=== PATIENT | female | born 1960 | race African-American/Black ===

== ENCOUNTER 2019-08-18 12:07 | Observation (INO) | payer OTHER ==
[2019-08-18 12:39] LABS: Hemoglobin 13.7 g/dL (12.0-16.0); Mean Corpuscular HGB CONC 31.7 g/dL (32.0-36.0); Mean Corpuscular Volume 88.4 fL (78.0-98.0); Mean Platelet Volume 7.6 fL (7.4-10.4); Platelet Count 265 thou/uL (130-400); RBC Distribution Width 11.9 % (11.5-14.5); Red Blood Cell (RBC) Count 4.89 mill/uL (4.20-5.40)
[2019-08-18 12:55] LABS: Band 7 % (5-11); Lymphocytes 14 % (21-51); MDiff Complete? YES; Metamyelocyte 1 % (0-0); Monocytes 2 % (0-10); Neutrophil 76 % (42-75); Platelet Morphology Comment Appears Adequate; RBC Morphology Normal; Vacuoles SLIGHT
[2019-08-18 13:01] LABS: ALT (SGPT) 35 U/L (8-55); AST (SGOT) 49 U/L (5-34); Albumin 4.4 g/dL (3.5-5.0); Alkaline Phosphatase 73 U/L (40-110); Anion Gap 11 mmol/L (10-20); BUN (Urea Nitrogen) 14 mg/dL (9.8-20.1); Bilirubin, Total 0.6 mg/dL (0.2-1.2); Calc. Creatinine Clearance 0 mL/min (70-130); Calcium 9.5 mg/dL (7.8-10.44); Carbon Dioxide 30 mmol/L (22-29); Chloride 101 mmol/L (98-107); Estimated GFR-MDRD 56; Globulin 3.7 g/dL (2.4-3.5); Glucose 132 mg/dL (70-105); Potassium 3.3 mmol/L (3.5-5.1); Protein, Total 8.1 g/dL (6.0-8.3); Sodium 139 mmol/L (136-145)
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
--- NOTE | 2019-08-18 13:26 | CT ---
CT BRAIN WITHOUT CONTRAST: HISTORY: Syncope FINDINGS: No evidence of acute infarct, hemorrhage, midline shift or abnormal extra-axial fluid collections is seen. The ventricular size is appropriate and the basilar cisterns are patent. The bony calvarium is intact. There is mucosal disease in the paranasal sinuses. IMPRESSION: No CT evidence of acute intracranial process.
[2019-08-18] MEDS ORDERED: Ketorolac Tromethamine 30 MG/ML VIAL ONE (14:22)
[2019-08-18 14:49] LABS: Bacteria/HPF None Seen HPF (None Seen); Bilirubin Negative (Negative); Blood, Urine 2+ (Negative); Clarity Clear (Clear); Glucose, Urine (Dipstick) Normal (Negative); Leukocyte 75 Leu/uL (Negative); Nitrite Negative (Negative); Protein, Urine (Dipstick) 10 mg/dL (Neg-Trace); RBC/HPF Greater than 50 HPF (0-3); Squamous Epithelial 0-3 HPF (0-3); Urobilinogen Normal mg/dL (Less than 2)
[2019-08-18] MEDS ORDERED: Acetaminophen 325 MG TAB PO PRN (14:49)
[2019-08-18] MEDS ORDERED: Senokot S 8.6-50 MG TAB PO PRN (14:49)
[2019-08-18] MEDS ORDERED: HumaLOG 300 UNITS/3 ML VIAL SC PRN (15:30)
[2019-08-18] MEDS ORDERED: Dextrose 5% in Water 1,000 ML IV PRN (15:30)
[2019-08-18] MEDS ORDERED: Dextrose 50% Abboject 50 ML SYRINGE SLOW IVP PRN (15:30)
[2019-08-18 16:01] LABS: Troponin I Less than 0.010 ng/mL (< 0.028)
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
[2019-08-18 16:29] VITALS: BMI 29.1
[2019-08-18 19:03] LABS: Troponin I Less than 0.010 ng/mL (< 0.028)
[2019-08-18] MEDS: Ketorolac Tromethamine 30 MG/ML VIAL IVP PRN (20:08)
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
[2019-08-19] MEDS: Ketorolac Tromethamine 30 MG/ML VIAL IVP PRN (05:05)
[2019-08-19 05:21] LABS: #Basophils 0.1 thou/uL (0.0-0.2); #Eosinphils 0.2 thou/uL (0.0-0.7); #Lymphocytes 2.1 thou/uL (1.20-3.40); #Monocytes 0.9 thou/uL (0.11-0.59); #Neutrophils 5.9 thou/uL (1.40-6.50); %Basophils 0.7 % (0.0-1.0); %Eosinophils 2.3 % (0.0-10.0); %Lymphocytes 22.8 % (21.0-51.0); %Monocytes 10.1 % (0.0-10.0); %Neutrophils 64.1 % (42.0-75.0); Hemoglobin 12.2 g/dL (12.0-16.0); Mean Corpuscular HGB CONC 30.2 g/dL (32.0-36.0); Mean Corpuscular Hemoglobin 26.7 pg (27.0-31.0); Mean Corpuscular Volume 88.3 fL (78.0-98.0); Mean Platelet Volume 7.7 fL (7.4-10.4); Platelet Count 257 thou/uL (130-400); Red Blood Cell (RBC) Count 4.56 mill/uL (4.20-5.40); White Blood Cell (WBC) Count 9.2 thou/uL (4.8-10.8)
[2019-08-19 05:41] LABS: Anion Gap 12 mmol/L (10-20); BUN (Urea Nitrogen) 20 mg/dL (9.8-20.1); Calc. Creatinine Clearance 85 mL/min (70-130); Carbon Dioxide 27 mmol/L (22-29); Chloride 106 mmol/L (98-107); Estimated GFR-MDRD 77; Glucose 109 mg/dL (70-105); Potassium 3.5 mmol/L (3.5-5.1); Sodium 141 mmol/L (136-145)
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
[2019-08-19] MEDS ORDERED: Enoxaparin Sodium 40 MG/0.4 ML SYRINGE SC SCH (09:00)
[2019-08-19] MEDS ORDERED: FLU VACC QS2019-20(6MOS UP)/PF 60 MCG/0.5 ML SYRINGE IM ONE (09:00)
[2019-08-19] MEDS ORDERED: Regadenoson 0.4 MG/5 ML SYRINGE ONE (09:33)
[2019-08-19] MEDS ORDERED: Iopamidol 370 76% 100 ML VIAL ONE (09:43)
--- NOTE | 2019-08-19 13:18 | NM ---
NM Cardiac Stress W EF WF History: Chest pain Comparison: None. Findings: Stress and rest performed after the intravenous ministration of 31.5 mCi and 11 mCi technet ium 99m sestamibi, respectively. On the stress images there is low-grade reversal ischemia of the anterior wall. Normal wall motion. T he calculated ejection fraction is 77%. Impression: Low-grade reversible ischemia anterior wall left ventricle.
[2019-08-19] MEDS ORDERED: Heparin (Artline) 1,000 ML ONE (14:18)
[2019-08-19] MEDS ORDERED: Lidocaine 1% (PF) 30 ML VIAL ONE (14:21)
[2019-08-19] MEDS ORDERED: Midazolam HCl 2 mg/2 ml Vial ONE ×2 (14:55→15:32)
[2019-08-19] MEDS ORDERED: Fentanyl 100 MCG/2 ML VIAL ONE (14:55)
[2019-08-19] MEDS ORDERED: Lidocaine 1% w/Epinephrine 1:100K 20 ML VIAL ONE (15:06)
[2019-08-19] MEDS ORDERED: Acetaminophen/Codeine 30-300mg Tablet PO PRN (15:38)
[2019-08-19] MEDS ORDERED: Sodium Chloride 0.9% 200 ML IV PRN (15:38)
[2019-08-19] MEDS ORDERED: Sodium Chloride 0.9% 500 ML IV SCH (15:45)
[2019-08-19 16:08] VITALS: BP 139/72; TEMP 98.2
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
== END 2019-08-19 18:22 | disposition home or self-care (01) ==
LOC: ERS 12:07 → 2SW 14:57
PROVIDERS: ADMIT Internal Medicine; ATTEND Internal Medicine
PROC: 4A023N7 Measurement of Cardiac Sampling and Pressure, Left Heart, Percutaneous Approach (ICD-10-PCS; principal; 2019-08-19)
PROC: B2111ZZ Fluoroscopy of Multiple Coronary Arteries using Low Osmolar Contrast (ICD-10-PCS; 2019-08-19)
PROC: 0JH632Z Insertion of Monitoring Device into Chest Subcutaneous Tissue and Fascia, Percutaneous Approach (ICD-10-PCS; 2019-08-19)
DX: R55 Syncope and collapse (principal); E11.9 Type 2 diabetes mellitus without complications; I10 Essential (primary) hypertension; J45.909 Unspecified asthma, uncomplicated; S32.019A Unspecified fracture of first lumbar vertebra, initial encounter for closed fracture; S32.029A Unspecified fracture of second lumbar vertebra, initial encounter for closed fracture; N20.1 Calculus of ureter; Z79.84 Long term (current) use of oral hypoglycemic drugs; Z79.899 Other long term (current) drug therapy; V59.9XXA Occupant (driver) (passenger) of pick-up truck or van injured in unspecified traffic accident, initial encounter
CPT/HCPCS: 33285; 36415; 36416; 70450; 71045; 72100; 72131; 78452; 80048; 80053; 81003; 81015; 82550; 84484; 85025; 87804; 90471; 90686; 90732; 93005; 93017; 93306; 93458; 93880; 94760; 96361; 96372; 96374; 96376; 99152; A9500; C1764; C1769; G0008; G0009; G0378; J1644; J1650; J1885; J2001; J2250; J2785; J3010; Q9967

== ENCOUNTER 2019-09-08 21:36 | Emergency (ER) | payer OTHER ==
[2019-09-08] MEDS ORDERED: Ondansetron PF 4 MG/2 ML Vial ONE (21:59)
[2019-09-08] MEDS ORDERED: Morphine 4 MG/ML VIAL ONE ×2 (21:59→23:49)
[2019-09-08] MEDS ORDERED: Ketorolac Tromethamine 30 MG/ML VIAL ONE (21:59)
[2019-09-08 22:13] LABS: #Basophils 0.1 thou/uL (0.0-0.2); #Eosinphils 0.2 thou/uL (0.0-0.7); #Neutrophils 7.7 thou/uL (1.40-6.50); %Eosinophils 1.5 % (0.0-10.0); %Lymphocytes 18.5 % (21.0-51.0); %Monocytes 8.7 % (0.0-10.0); %Neutrophils 70.3 % (42.0-75.0); Hemoglobin 12.2 g/dL (12.0-16.0); Mean Corpuscular HGB CONC 33.3 g/dL (32.0-36.0); Mean Corpuscular Volume 89.9 fL (78.0-98.0); Mean Platelet Volume 7.2 fL (7.4-10.4); Platelet Count 348 thou/uL (130-400); RBC Distribution Width 12.7 % (11.5-14.5); Red Blood Cell (RBC) Count 4.06 mill/uL (4.20-5.40)
--- NOTE | 2019-09-08 22:28 | CT ---
CT of abdomen and pelvis: 09/08/2019 COMPARISON: None HISTORY: Right-sided pain TECHNIQUE: Axial CT imaging at 5 mm intervals from lung bases through pubic symphysis without contras t. Coronal reformatted imaging obtained. FINDINGS: Lack of contrast media limits assessment of the viscera, bowel, vascular structures, and fo r lymphadenopathy. The visualized lung bases appear grossly unremarkable. Incompletely imaged left lower lobe nodule on image 1 measures approximately 4 mm. No evidence for free intraperitoneal air. The liver, gallbladder, and spleen appear grossly unremarkable. There are multiple nonobstructing intrarenal calculi on the left, measuring up to approximately 3 mm. There are 3 punctate stones within the right kidney. There is also a large stone within the midpole o f the right kidney measuring 1.3 cm. There is hydronephrosis and hydroureter on the right. This is secondary to multiple obstructing stones within the distal right ureter, best seen on coronal image 8 0. There are 3-4 distal obstructing stones within the right ureter, which measure up to approximately 6 mm. There is no evidence for obstructive uropathy on the left. Limited assessment of the bowel demonstrates diverticulosis of the descending colon with no evidence for diverticulitis. Review of the osseous structures demonstrates no worrisome lytic or blastic lesions. IMPRESSION: Obstructive uropathy on the right with prominent right-sided hydronephrosis and hydrouret er secondary to numerous distal obstructing right ureteral stones. There appear to be 3-4 obstructing stones within the distal right ureter measuring up to 6 mm. Intrarenal calculi noted bila terally as well.
[2019-09-08 22:50] LABS: Bacteria/HPF None Seen HPF (None Seen); Bilirubin Negative (Negative); Blood, Urine 1+ (Negative); Clarity Clear (Clear); Glucose, Urine (Dipstick) Normal (Negative); Leukocyte 250 Leu/uL (Negative); Nitrite Negative (Negative); Protein, Urine (Dipstick) Negative (Neg-Trace); Urobilinogen Normal mg/dL (Less than 2)
[2019-09-08 23:00] LABS: ALT (SGPT) 9 U/L (8-55); AST (SGOT) 16 U/L (5-34); Albumin 4.2 g/dL (3.5-5.0); Alkaline Phosphatase 67 U/L (40-110); Anion Gap 13 mmol/L (10-20); BUN (Urea Nitrogen) 18 mg/dL (9.8-20.1); Bilirubin, Total 0.4 mg/dL (0.2-1.2); Calc. Creatinine Clearance 0 mL/min (70-130); Calcium 9.4 mg/dL (7.8-10.44); Carbon Dioxide 25 mmol/L (22-29); Chloride 106 mmol/L (98-107); Estimated GFR-MDRD 53; Globulin 3.4 g/dL (2.4-3.5); Glucose 118 mg/dL (70-105); Potassium 3.5 mmol/L (3.5-5.1); Protein, Total 7.6 g/dL (6.0-8.3); Sodium 140 mmol/L (136-145)
== END 2019-09-09 00:25 | disposition home or self-care (01) ==
LOC: ERS 21:36
DX: N13.2 Hydronephrosis with renal and ureteral calculous obstruction (principal); I10 Essential (primary) hypertension; J45.909 Unspecified asthma, uncomplicated; R11.2 Nausea with vomiting, unspecified; R73.03 Prediabetes; Z79.899 Other long term (current) drug therapy; Z79.84 Long term (current) use of oral hypoglycemic drugs
CPT/HCPCS: 74176; 80053; 81003; 81015; 85025; 87086; 96361; 96374; 96375; 96376; J1885; J2270; J2405

== ENCOUNTER 2019-09-20 05:16 | Emergency (ER) | payer OTHER ==
[2019-09-20] MEDS ORDERED: Ondansetron PF 4 MG/2 ML Vial ONE (05:40)
[2019-09-20] MEDS ORDERED: Ketorolac Tromethamine 30 MG/ML VIAL ONE (05:40)
[2019-09-20 05:51] LABS: Bacteria/HPF None Seen HPF (None Seen); Bilirubin Negative (Negative); Blood, Urine 3+ (Negative); Clarity Turbid (Clear); Glucose, Urine (Dipstick) Normal (Negative); Leukocyte 500 Leu/uL (Negative); Nitrite Negative (Negative); Protein, Urine (Dipstick) 100 mg/dL (Neg-Trace); RBC/HPF Greater than 50 HPF (0-3); Squamous Epithelial 0-3 HPF (0-3); Urobilinogen Normal mg/dL (Less than 2); WBC/HPF Greater than 50 HPF (0-3)
[2019-09-20 05:52] LABS: Unclassified Crystals 2+ HPF (None Seen)
[2019-09-20 06:18] LABS: Eosinophils 3 % (0-10); Hemoglobin 13.1 g/dL (12.0-16.0); Lymphocytes 28 % (21-51); MDiff Complete? YES; Mean Corpuscular HGB CONC 32.9 g/dL (32.0-36.0); Mean Corpuscular Hemoglobin 29.8 pg (27.0-31.0); Mean Corpuscular Volume 90.7 fL (78.0-98.0); Mean Platelet Volume 7.8 fL (7.4-10.4); Monocytes 6 % (0-10); Neutrophil 63 % (42-75); Platelet Count 240 thou/uL (130-400); Platelet Morphology Comment Appears Adequate; RBC Distribution Width 12.6 % (11.5-14.5); Red Blood Cell (RBC) Count 4.39 mill/uL (4.20-5.40); White Blood Cell (WBC) Count 9.3 thou/uL (4.8-10.8)
[2019-09-20 06:22] LABS: ALT (SGPT) 10 U/L (8-55); AST (SGOT) 15 U/L (5-34); Albumin 4.2 g/dL (3.5-5.0); Alkaline Phosphatase 56 U/L (40-110); Anion Gap 12 mmol/L (10-20); BUN (Urea Nitrogen) 17 mg/dL (9.8-20.1); Bilirubin, Total 0.4 mg/dL (0.2-1.2); Calc. Creatinine Clearance 0 mL/min (70-130); Calcium 9.3 mg/dL (7.8-10.44); Carbon Dioxide 25 mmol/L (22-29); Chloride 106 mmol/L (98-107); Estimated GFR-MDRD 58; Globulin 3.3 g/dL (2.4-3.5); Glucose 105 mg/dL (70-105); Potassium 4.3 mmol/L (3.5-5.1); Protein, Total 7.5 g/dL (6.0-8.3); Sodium 139 mmol/L (136-145)
--- NOTE | 2019-09-20 07:29 | CT ---
PRELIMINARY REPORT/[facility]/EMERGENCY AFTER HOURS PROCEDURE PROCEDURE: CT Scan Abdomen and Pelvis without IV Contrast Material. HISTORY: Suprapubic and low back pain after lithotripsy last week. TECHNIQUE: Axial images were performed with multiplanar reconstructions without IV contrast material. The patient was not given oral contrast material. COMPARISON: None . FINDINGS: Clear lung bases. Liver, spleen, adrenals, and pancreas show no abnormality. Double-J stent in the RIGHT ureter in good position with moderate hydronephrosis. Subcentimeter nono bstructing calyceal stones both kidneys. Subcentimeter renal pelvic stones in the RIGHT kidney. Small stones adjacent to the double-J stent proximal RIGHT ureter. Normal biliary tract. No abdominal ascites or pneumoperitoneum. Normal aorta. No lymphadenopathy. No bowel obstruction or inflammation and normal appendix. Pelvis shows previous hysterectomy and no masses or fluid. No acute bony abnormality. IMPRESSION: Double-J stent RIGHT ureter in good position with moderate hydronephrosis. Bilateral nephrolithiasis. RIGHT renal pelvic and proximal ureter stones. No other significant abnormality identified. ELECTRONICALLY SIGNED BY: Miguelangel Drake MD Sep 20, 2019 6:18:11 AM CDT This report is intended for review by the ordering physician only, in accordance of law. If you recei ve this report in error, please call [facility] at [phone]. FINAL REPORT Exam: Abdomen CT without contrast Pelvic CT without contrast HISTORY: Suprapubic abdominal pain and lower back pain. Status post lithotripsy. COMPARISON: 09/08/2019 FINDINGS: Interval placement of a double pigtail right stent. Previously noted large 1.3 cm calculus is no long er evident. There are still small intrarenal calculi. Largest calculus is in the lower pole, measuring approximately 1 cm maximum dimension. There are calcified fragments along the course of the proximal right ureter. There is persistent severe right-sided hydronephrosis. Stable nonobstructing calculi in the left intrarenal collecting system. No evidence of left-sided obstructiv e uropathy. Grossly no solid organ abnormality. No evidence of bowel obstruction. Normal caliber appendix. Scattered fecal material in a nondistended , nondilated colon. IMPRESSION: 1. Report is in agreement with initial report by [facility]. 2. Interval placement of a double-J ureteral stent, appropriately position. There is severe right-dennis ed hydronephrosis. 3. Bilateral intrarenal calculi along with calculi in the course of the proximal right ureteral stent . Transcribed Date/Time: 09/20/2019 7:40 AM
== END 2019-09-20 07:20 | disposition home or self-care (01) ==
LOC: ERS 05:16
DX: R10.31 Right lower quadrant pain (principal); R11.0 Nausea; Z96.0 Presence of urogenital implants; I10 Essential (primary) hypertension; J45.909 Unspecified asthma, uncomplicated; R73.03 Prediabetes; Z79.84 Long term (current) use of oral hypoglycemic drugs; Z79.51 Long term (current) use of inhaled steroids; Z79.899 Other long term (current) drug therapy
CPT/HCPCS: 74176; 80053; 81003; 81015; 85025; 87086; 96361; 96374; 96375; J1885; J2405